=== PATIENT | male | born 1980 | race Caucasian/White ===

== ENCOUNTER 2018-03-25 23:44 | Emergency (ER) | payer MEDICAID ==
[~2018-03-25] VITALS: Ht 180.3 cm; Wt 83.0 kg
[2018-03-26 00:06] VITALS: BP 124/80
[2018-03-26] MEDS ORDERED: IBUP-1986 PO (00:51)
== END 2018-03-26 01:11 | disposition home or self-care (01) ==
LOC: ER 23:47
DX: M25.512 Pain in left shoulder (principal); R20.2 Paresthesia of skin; F12.90 Cannabis use, unspecified, uncomplicated; Z88.8 Allergy status to other drugs, medicaments and biological substances; Z79.899 Other long term (current) drug therapy
CPT/HCPCS: 29105; 73030; 99283

== ENCOUNTER 2021-01-29 07:11 | Inpatient (IN) | payer MEDICAID ==
[2021-01-24 13:09] LABS: CLARITY,URINE CLEAR (Clear); COLOR,URINE YELLOW (Yellow); GLUCOSE, URINE NEGATIVE (Neg); KETONES,URINE NEGATIVE (Neg); LEUKOCYTE ESTERASE ,URINE NEGATIVE (Neg); NITRITES, URINE NEGATIVE (Neg); OCCULT BLOOD,URINE NEGATIVE (Neg); PROTEIN,URINE NEGATIVE (Neg); UROBILINOGEN,URINE 0.2 E.U/dL (0.2-1.0)
[2021-01-24 13:12] LABS: BASOPHILS # (AUTO) 0.1 X10'3 (0-0.2); BASOPHILS % (AUTO) 0.9 % (0-1); EOSINOPHILS # (AUTO) 0.1 X10'3 (0-0.9); EOSINOPHILS % (AUTO) 1.2 % (0-6); LYMPHOCYTES # (AUTO) 2.2 X10'3 (1.1-4.8); LYMPHOCYTES % (AUTO) 30.3 % (21-51); MEAN CORPUSCULAR HEMOGLOBIN 32.5 PG (27.0-31.0); MEAN CORPUSCULAR HGB CONC 35.2 g/dL (33.0-36.5); MEAN CORPUSCULAR VOLUME 92.3 FL (78-98); MEAN PLATELET VOLUME 7.2 FL (7.4-10.4); MONOCYTES # (AUTO) 0.4 X10'3 (0-0.9); MONOCYTES % (AUTO) 5.7 % (2-12); NEUTROPHILS # (AUTO) 4.4 X10'3 (1.8-7.7); NEUTROPHILS % (AUTO) 61.9 % (42-75); PRE OP HEMATOCRIT 44.6 % (42.0-52.0); PRE OP HEMOGLOBIN 15.7 g/dL (14.0-17.9); PRE OP PLATELET COUNT 348 X10'3 (140-440); RED BLOOD COUNT 4.84 X10'6 (4.70-6.10); RED CELL DISTRIBUTION WIDTH 15.2 % (11.5-14.5)
[2021-01-24 13:14] LABS: UA COLLECTION TYPE NON-SPECIFIED
[2021-01-24 13:25] LABS: ALBUMIN 4.2 G/DL (3.4-5.0); ALBUMIN/GLOBULIN RATIO 1.1 (1.1-1.5); ALKALINE PHOSPHATASE 115 IU/L (46-116); BLOOD UREA NITROGEN 10 MG/DL (7-18); BUN/CREATININE RATIO 12.3 (5.4-32.0); CALCIUM 9.3 MG/DL (8.5-10.1); CHLORIDE 104 MMOL/L (99-107); CREATININE 0.81 MG/DL (0.60-1.10); PRE OP ALT 38 U/L (30-65); PRE OP ANION GAP 11 (8-16); PRE OP AST 18 U/L (10-37); PRE OP BILIRUB, TOTAL 0.3 MG/DL (0.0-1.0); PRE OP GLUCOSE 88 MG/DL (70-104); PRE OP POTASSIUM 3.8 MMOL/L (3.4-5.1); PRE OP SODIUM 138 MMOL/L (135-145); TOTAL PROTEIN 8.2 G/DL (6.4-8.2); eGFR > 90 ML/MIN
[2021-01-29] VITALS (26 sets, daily range): BP systolic 117–152; BP diastolic 69–102
[~2021-01-29] VITALS: Ht 180.3 cm; Wt 80.0 kg
[~2021-01-29 07:11] MED LIST: BACL-11 PO; HYDR-3965 PO; MARIJUANA INH; OMEP40CA21 PO; ceFOXitin 2GM-NS 100mL ADDvant 100 ML IV ONE; famotidine 20mg tablet PO ONE; ringers solution, lacted 1,000 ML IV SCH
[2021-01-29] MEDS ORDERED: morphine 4 MG/ML inj SYRINge IV ONE (10:50)
[2021-01-29] MEDS ORDERED: ondansetron/PF 4mg/2ml inj IV ONE (10:50)
[2021-01-29] MEDS ORDERED: BUPIVAcaine/PF 2.5 mg/ml (0.25%) 30ml vial ONE (12:26)
[2021-01-29] MEDS ORDERED: sevoflurane 250ml liquid IH ONE (12:26)
[2021-01-29] MEDS ORDERED: fentaNYL /PF 50mcg/ml 5ml ampule ONE (12:40)
[2021-01-29] MEDS ORDERED: midazolam 1 mg/ML 2ml injection ONE (12:40)
[2021-01-29] MEDS ORDERED: LIDOcaine 2% (20mg/ml) 5ml vial ONE (12:51)
[2021-01-29] MEDS ORDERED: rocuronium 10mg/ml inj IV ONE ×2 (12:51→13:59)
[2021-01-29] MEDS ORDERED: propofol inj 20 ML IV ONE (12:51)
[2021-01-29] MEDS ORDERED: ondansetron/PF 4mg/2ml inj ONE (13:01)
[2021-01-29] MEDS ORDERED: dexamethasone sod phosphate 4mg/ml inj. ONE (13:01)
[2021-01-29] MEDS ORDERED: morphine 10mg/ml inj. ONE (13:58)
[2021-01-29] MEDS ORDERED: neostigmine methylsulfate 1 MG/ML 10ml vial ONE (14:11)
[2021-01-29] MEDS ORDERED: glycopyrrolate 0.2mg/ml inj ONE (14:11)
--- NOTE | 2021-01-29 14:30 | NUR ---
Received from OR via BED, accompanied by Anesthesiologist ALVARO and report given by Anesthesiolgist. PT DROWSY, OXYGENATING WELL ON 10 LPM O2 VIA MASK, NO RESP DISTRESS NOTED. DENIES NAUSEA, C/O 8-9/10 PAIN INCISIONAL PAIN. MEDICATED PRN, SEE EMAR. TACHYCARDIC IN THE 110'S, ANESTHESIA ORDERED FLUID BOLUS. ABD TROCHAR SITES ARE COVERED WITH BANDAIDS AND SM DSG ON ONE SITE. COLOSTOMY REVERSAL SITE IS PACKED WITH 1/2 INCH WOUND PACKING AND LEFT OPEN (PER SQL DATABASE DEVELOPER), COVERED WITH GAUZE OCCLUSIVE DSG. CDI. VITALS ARE STABLE, WILL CONINUE TO MONITOR TACHCARDIA. SCDS ON.
[2021-01-29] MEDS ORDERED: meperidine/PF 25mg/ml syringe ONE ×2 (14:38→15:06)
[2021-01-29] MEDS ORDERED: labetalol 20mg/4ml (5mg/ml) syringe IV PRN (15:20)
[2021-01-29] MEDS ORDERED: proCHLORperazine 10 MG/2 ml inj IV PRN (15:20)
[2021-01-29] MEDS ORDERED: ondansetron/PF 4mg/2ml inj IV PRN (15:20)
[2021-01-29] MEDS ORDERED: ringers solution, lacted 1,000 ML IV SCH (15:20)
[2021-01-29] MEDS ORDERED: acetaminophen 1,000mg/100ml IV 100 ML IV PRN (15:20)
[2021-01-29] MEDS ORDERED: meperidine/PF 25mg/ml syringe IV PRN (15:20)
[2021-01-29] MEDS ORDERED: HYDROmorphone/PF 0.2 MG/ML SYRINGE IV PRN ×2 (15:20)
[2021-01-29] MEDS: meperidine/PF 25mg/ml syringe IV PRN ×2 (15:26→16:25)
[2021-01-29] MEDS ORDERED: naloxone 0.4 mg/ml inj IV PRN (16:25)
[2021-01-29] MEDS: HYDROmorph./NS 0.2 mg/ml CADD 100 ML IV SCH ×5 (16:45→23:00)
--- NOTE | 2021-01-29 16:55 | NUR ---
Received pt via bed from recovery. VSS, bed low call light and CADD button in reach. Pt awake A&O verbalizes poc. Home meds take to pharmacy for storage.
--- NOTE | 2021-01-29 17:00 | NUR ---
Report called to receiving nurse. Transferred via BED W/ 1 BAG OF Belongings, 1 BLACK SUITCASE, 1 CANE TO ROOM 355B. RECEIVING RN AT BEDSIDE TO RECEIVE PT, BLL, CALL LIGHT GIVEN TO PT. Special Issues communicated to receiving nurse. YES. Addendum: 01/29/21 at 1719 by Nadiya Aragon RN Amended: Links added.
[2021-01-29] MEDS ORDERED: pantoprazole 40mg Tablet.DR PO PRN (17:05)
[2021-01-29] MEDS: nicotine 21mg patch - 24 hr TD SCH (17:37)
[2021-01-29] MEDS: normal saline 1000ml 1,000 ML IV SCH (17:45)
--- NOTE | 2021-01-29 18:18 | NUR ---
Problems reprioritized. Patient report given, questions answered & plan of care reviewed with MARKO Olivera.
[2021-01-29] MEDS ORDERED: HYDROcodone/acetaminophen 5mg/325mg tablet PO PRN (20:00)
[2021-01-29] MEDS: baclofen 10mg tablet PO SCH (21:01)
[2021-01-30] VITALS: BP 120/81
[2021-01-30] MEDS: HYDROmorph./NS 0.2 mg/ml CADD 100 ML IV SCH ×12 (01:00→23:00)
[2021-01-30 04:00] VITALS: BP 106/61
[2021-01-30] MEDS: normal saline 1000ml 1,000 ML IV SCH ×3 (06:53→18:17)
--- NOTE | 2021-01-30 07:12 | NUR ---
Patient in room [facility]. I have received report from NATHAN Olivera and had the opportunity to ask questions and assume patient care.
[2021-01-30] MEDS: nicotine 21mg patch - 24 hr TD SCH (08:02)
[2021-01-30 08:27] VITALS: BP 113/79
[2021-01-30] MEDS ORDERED: LORazepam 1 MG tablet PO PRN (12:20)
[2021-01-30] MEDS ORDERED: haloperidol 5mg tablet PO PRN (12:20)
[2021-01-30] MEDS ORDERED: haloperidol lactate 5mg/ml inj IM PRN (12:20)
[2021-01-30] MEDS ORDERED: LORazepam 2 mg/ml vial IV PRN (12:20)
[2021-01-30 12:35] VITALS: BP 125/86
--- NOTE | 2021-01-30 18:13 | NUR ---
Problems reprioritized. Patient report given, questions answered & plan of care reviewed with NATHAN Olivera.
[2021-01-30] MEDS: mag hydrox/Alum hydrox/simeth 30ml oral suspension PO PRN (18:16)
[2021-01-30 20:00] VITALS: BP 97/62
[2021-01-30] MEDS: benzocaine/menthol oral lozeng 1 EACH BOX MM PRN ×2 (21:06→23:33)
[2021-01-30] MEDS: baclofen 10mg tablet PO SCH (22:05)
[2021-01-31] VITALS: BP 98/72
[2021-01-31] MEDS: HYDROmorph./NS 0.2 mg/ml CADD 100 ML IV SCH ×13 (01:00→22:10)
[2021-01-31] MEDS: normal saline 1000ml 1,000 ML IV SCH ×2 (01:22→20:52)
--- NOTE | 2021-01-31 06:04 | NUR ---
PT RESTING IN BED. CADD PUMP REMAINS IN PROGRESS. PT INSTRUCTED TO SAVE URINE IN URINAL SO THAT URINE COULD BE MEASURED BUT PT STATED HE FORGOT EACH TIME. URINAL AT BEDSIDE. PT DID NOT APPEAR TO HAVE ANY SIGNS OF DTS NOTED OVERNIGHT
[2021-01-31 06:40] LABS: BASOPHILS % (AUTO) 0.1 % (0-1); EOSINOPHILS % (AUTO) 0.2 % (0-6); HEMOGLOBIN 12.2 g/dl (14.0-17.9); LYMPHOCYTES # (AUTO) 1.3 X10'3 (1.1-4.8); LYMPHOCYTES % (AUTO) 14.9 % (21-51); MEAN CORPUSCULAR HEMOGLOBIN 32.1 PG (27.0-31.0); MEAN CORPUSCULAR HGB CONC 34.8 g/dL (33.0-36.5); MEAN CORPUSCULAR VOLUME 92.1 FL (78-98); MEAN PLATELET VOLUME 7.6 FL (7.4-10.4); MONOCYTES # (AUTO) 0.4 X10'3 (0-0.9); MONOCYTES % (AUTO) 4.3 % (2-12); NEUTROPHILS # (AUTO) 7.2 X10'3 (1.8-7.7); NEUTROPHILS % (AUTO) 80.5 % (42-75); PLATELET COUNT 268 X10'3 (140-440); RED CELL DISTRIBUTION WIDTH 14.9 % (11.5-14.5)
[2021-01-31 07:00] VITALS: BP 114/73
[2021-01-31 07:07] LABS: ALANINE AMINOTRANSFERASE 26 U/L (12-78); ALBUMIN 2.7 G/DL (3.4-5.0); ALBUMIN/GLOBULIN RATIO 0.8 (1.1-1.5); ALKALINE PHOSPHATASE 94 IU/L (46-116); AMYLASE 25 U/L (25-115); ANION GAP 5 (8-16); ASPARTATE AMINO TRANSFERASE 36 U/L (10-37); BILIRUBIN,TOTAL 0.6 MG/DL (0.1-1.0); BLOOD UREA NITROGEN 5 MG/DL (7-18); BUN/CREATININE RATIO 6.4 (5.4-32.0); CALCIUM 8.3 MG/DL (8.5-10.1); CHLORIDE 100 MMOL/L (99-107); CREATININE 0.78 MG/DL (0.60-1.10); GLUCOSE 113 MG/DL (70-104); LIPASE 59 U/L (73-393); MAGNESIUM 1.6 MG/DL (1.5-2.4); PHOSPHORUS 1.7 MG/DL (2.3-4.5); POTASSIUM 3.4 MMOL/L (3.5-5.1); SODIUM 136 MMOL/L (135-145); TOTAL CARBON DIOXIDE 31.4 MMOL/L (24-32); TOTAL PROTEIN 6.1 G/DL (6.4-8.2); eGFR > 90 ML/MIN
[2021-01-31] MEDS: benzocaine/menthol oral lozeng 1 EACH BOX MM PRN ×2 (07:57→15:39)
[2021-01-31] MEDS: nicotine 21mg patch - 24 hr TD SCH (07:58)
[2021-01-31 11:00] VITALS: BP 114/68
[2021-01-31] MEDS: mag hydrox/Alum hydrox/simeth 30ml oral suspension PO PRN (15:39)
--- NOTE | 2021-01-31 18:39 | NUR ---
Problems reprioritized. Patient report given, questions answered & plan of care reviewed with NATHAN GARY.
[2021-01-31 18:45] VITALS: BP 128/84
[2021-01-31] MEDS: baclofen 10mg tablet PO SCH (20:00)
[2021-01-31] MEDS: CADD PCA waste documentation MC PRN (21:54)
[2021-02-01] VITALS: BP 115/78
[2021-02-01] MEDS: benzocaine/menthol oral lozeng 1 EACH BOX MM PRN ×3 (01:25→15:49)
[2021-02-01] MEDS: HYDROmorph./NS 0.2 mg/ml CADD 100 ML IV SCH ×11 (03:00→23:00)
[2021-02-01 06:19] LABS: BASOPHILS % (AUTO) 0.1 % (0-1); EOSINOPHILS # (AUTO) 0.1 X10'3 (0-0.9); EOSINOPHILS % (AUTO) 0.7 % (0-6); HEMOGLOBIN 12.1 g/dl (14.0-17.9); LYMPHOCYTES % (AUTO) 12.3 % (21-51); MEAN CORPUSCULAR HEMOGLOBIN 32.6 PG (27.0-31.0); MEAN CORPUSCULAR HGB CONC 35.5 g/dL (33.0-36.5); MEAN CORPUSCULAR VOLUME 91.6 FL (78-98); MEAN PLATELET VOLUME 7.8 FL (7.4-10.4); MONOCYTES # (AUTO) 0.3 X10'3 (0-0.9); MONOCYTES % (AUTO) 4.3 % (2-12); NEUTROPHILS # (AUTO) 6.6 X10'3 (1.8-7.7); NEUTROPHILS % (AUTO) 82.6 % (42-75); PLATELET COUNT 243 X10'3 (140-440); RED BLOOD COUNT 3.71 X10'6 (4.70-6.10); RED CELL DISTRIBUTION WIDTH 14.6 % (11.5-14.5)
[2021-02-01 06:40] LABS: ALANINE AMINOTRANSFERASE 73 U/L (12-78); ALBUMIN 2.3 G/DL (3.4-5.0); ALBUMIN/GLOBULIN RATIO 0.7 (1.1-1.5); ALKALINE PHOSPHATASE 232 IU/L (46-116); AMYLASE 18 U/L (25-115); ANION GAP 7 (8-16); ASPARTATE AMINO TRANSFERASE 65 U/L (10-37); BILIRUBIN,TOTAL 0.7 MG/DL (0.1-1.0); BLOOD UREA NITROGEN 4 MG/DL (7-18); BUN/CREATININE RATIO 5.3 (5.4-32.0); CALCIUM 8.2 MG/DL (8.5-10.1); CHLORIDE 100 MMOL/L (99-107); CREATININE 0.75 MG/DL (0.60-1.10); GLUCOSE 119 MG/DL (70-104); LIPASE < 50 U/L (73-393); MAGNESIUM 1.5 MG/DL (1.5-2.4); PHOSPHORUS 1.7 MG/DL (2.3-4.5); POTASSIUM 3.2 MMOL/L (3.5-5.1); SODIUM 134 MMOL/L (135-145); TOTAL CARBON DIOXIDE 27.4 MMOL/L (24-32); TOTAL PROTEIN 5.7 G/DL (6.4-8.2); eGFR > 90 ML/MIN
[2021-02-01 07:00] VITALS: BP 116/81
--- NOTE | 2021-02-01 07:19 | NUR ---
TO obtained from ronn for electrolyte replacement
[2021-02-01] MEDS ORDERED: potassium Cl 20 mEq SR tablet PO ONE (07:25)
[2021-02-01] MEDS ORDERED: calcium acetate 667mg (PhosLO) capsule PO SCH (08:00)
[2021-02-01] MEDS: mag hydrox/Alum hydrox/simeth 30ml oral suspension PO PRN ×2 (08:12→15:49)
[2021-02-01] MEDS: normal saline 1000ml 1,000 ML IV SCH (08:13)
[2021-02-01] MEDS: nicotine 21mg patch - 24 hr TD SCH (08:13)
[2021-02-01] MEDS: ondansetron/PF 4mg/2ml inj IV PRN ×2 (10:01→15:52)
[2021-02-01 11:00] VITALS: BP 124/86
[2021-02-01 19:00] VITALS: BP 137/90
[2021-02-01] MEDS: proCHLORperazine 10 MG/2 ml inj IV PRN (20:03)
[2021-02-01] MEDS ORDERED: Neutra Phos packet PO PRN (21:00)
[2021-02-01] MEDS: baclofen 10mg tablet PO SCH (21:12)
[2021-02-02] VITALS: BP 134/93
[2021-02-02] MEDS: normal saline 1000ml 1,000 ML IV SCH
[2021-02-02] MEDS: HYDROmorph./NS 0.2 mg/ml CADD 100 ML IV SCH ×6 (01:00→11:00)
[2021-02-02] MEDS: benzocaine/menthol oral lozeng 1 EACH BOX MM PRN (02:44)
--- NOTE | 2021-02-02 03:17 | NUR ---
late entry wound to old stoma site drsg changed. site pink vascular . no odor noted. wound border with redness noted as well as area underneath gauze . wet to dry drsg done .packed wound with iodoform gauze covered with dry 4x4's and tegaderm .
--- NOTE | 2021-02-02 05:46 | NUR ---
pt states relief from nausea after compazine was given. pt had a soft formed bm overnight
[2021-02-02 06:01] LABS: BASOPHILS % (AUTO) 0.1 % (0-1); EOSINOPHILS # (AUTO) 0.1 X10'3 (0-0.9); EOSINOPHILS % (AUTO) 0.7 % (0-6); HEMATOCRIT 37.3 % (42.0-52.0); HEMOGLOBIN 12.9 g/dl (14.0-17.9); LYMPHOCYTES # (AUTO) 0.7 X10'3 (1.1-4.8); LYMPHOCYTES % (AUTO) 6.8 % (21-51); MEAN CORPUSCULAR HEMOGLOBIN 31.9 PG (27.0-31.0); MEAN CORPUSCULAR HGB CONC 34.6 g/dL (33.0-36.5); MEAN CORPUSCULAR VOLUME 92.1 FL (78-98); MEAN PLATELET VOLUME 7.9 FL (7.4-10.4); MONOCYTES # (AUTO) 0.6 X10'3 (0-0.9); MONOCYTES % (AUTO) 5.8 % (2-12); NEUTROPHILS # (AUTO) 8.4 X10'3 (1.8-7.7); NEUTROPHILS % (AUTO) 86.6 % (42-75); PLATELET COUNT 279 X10'3 (140-440); RED BLOOD COUNT 4.05 X10'6 (4.70-6.10); RED CELL DISTRIBUTION WIDTH 14.9 % (11.5-14.5); WHITE BLOOD COUNT 9.7 X10'3 (4.5-11.0)
[2021-02-02 06:34] LABS: ALANINE AMINOTRANSFERASE 45 U/L (12-78); ALBUMIN 2.3 G/DL (3.4-5.0); ALBUMIN/GLOBULIN RATIO 0.6 (1.1-1.5); ALKALINE PHOSPHATASE 187 IU/L (46-116); AMYLASE 23 U/L (25-115); ANION GAP 7 (8-16); ASPARTATE AMINO TRANSFERASE 21 U/L (10-37); BILIRUBIN,TOTAL 0.8 MG/DL (0.1-1.0); BLOOD UREA NITROGEN 6 MG/DL (7-18); BUN/CREATININE RATIO 8.5 (5.4-32.0); CALCIUM 8.5 MG/DL (8.5-10.1); CHLORIDE 101 MMOL/L (99-107); CREATININE 0.71 MG/DL (0.60-1.10); GLUCOSE 118 MG/DL (70-104); LIPASE 62 U/L (73-393); MAGNESIUM 1.6 MG/DL (1.5-2.4); PHOSPHORUS 2.3 MG/DL (2.3-4.5); POTASSIUM 3.7 MMOL/L (3.5-5.1); SODIUM 136 MMOL/L (135-145); eGFR > 90 ML/MIN
[2021-02-02 08:00] VITALS: BP 126/62
[2021-02-02] MEDS: nicotine 21mg patch - 24 hr TD SCH (08:22)
[2021-02-02] MEDS: proCHLORperazine 10 MG/2 ml inj IV PRN (08:24)
[2021-02-02] MEDS: CADD PCA waste documentation MC PRN (10:57)
== END 2021-02-02 13:17 | disposition home or self-care (01) | DRG 230 ==
LOC: PAS IN 07:11 → SUR 3N 16:55
PROVIDERS: ADMIT Surgery; ATTEND Surgery
PROC: 0FT44ZZ Resection of Gallbladder, Percutaneous Endoscopic Approach (ICD-10-PCS; 2021-01-29)
PROC: 0DBB4ZZ Excision of Ileum, Percutaneous Endoscopic Approach (ICD-10-PCS; principal; 2021-01-29 12:26)
DX: Z43.2 Encounter for attention to ileostomy (principal); F10.10 Alcohol abuse, uncomplicated; K80.20 Calculus of gallbladder without cholecystitis without obstruction; G47.33 Obstructive sleep apnea (adult) (pediatric); F41.9 Anxiety disorder, unspecified; F32.A Depression, unspecified; F17.210 Nicotine dependence, cigarettes, uncomplicated; F19.10 Other psychoactive substance abuse, uncomplicated; Z91.51 Personal history of suicidal behavior; Z88.8 Allergy status to other drugs, medicaments and biological substances
CPT/HCPCS: 36415; 80053; 81003; 82150; 82948; 83690; 83735; 84100; 85025; 85610; 86885; 86900; 86901; 87081; 93005; 97116; 97161; A4618; A6258; A6449; A7000; C1758; G0378; J0131; J0694; J0780; J1100; J1170; J2175; J2250; J2270; J2274; J2405; J2704; J2710; J3010; J3490; J7030; J7120; U0003; U0005

== ENCOUNTER → 2023-09-01 | Outpatient (CLI) | payer MEDICAID ==
[~2023-09-01] MED LIST changes: -ceFOXitin 2GM-NS 100mL ADDvant 100 ML IV ONE; -famotidine 20mg tablet PO ONE; +iohexol 300mg/ml 100ml inj. ONE; -ringers solution, lacted 1,000 ML IV SCH
== END | disposition home or self-care (01) ==
LOC: RAD 12:32
PROVIDERS: ATTEND General Practice
DX: K76.0 Fatty (change of) liver, not elsewhere classified (principal); K52.9 Noninfective gastroenteritis and colitis, unspecified; R10.9 Unspecified abdominal pain; Z90.49 Acquired absence of other specified parts of digestive tract
CPT/HCPCS: 74170; Q9967